=== PATIENT | male | born 1980 | race Caucasian/White ===

== ENCOUNTER 2017-12-05 20:55 | Emergency (ER) | payer BC ==
[~2017-12-05] VITALS: Ht 175.3 cm; Wt 90.7 kg
[~2017-12-05 20:55] MED LIST: AMOXICILLIN 50500 MG PO; IBUPROFEN 800800 MG PO; NORCO 5-325 TA1 EACH PO; UROXATRAL PO
[2017-12-05] MEDS ORDERED: IBUPROFEN 800800 MG PO (21:50)
[2017-12-05] MEDS ORDERED: NORCO 5-325 TA1 EACH PO ×2 (21:50→21:53)
[2017-12-05 22:02] VITALS: BP 122/64
== END 2017-12-05 22:03 | disposition home or self-care (01) ==
LOC: M.ERS 20:55
DX: M25.511 Pain in right shoulder (principal); F17.210 Nicotine dependence, cigarettes, uncomplicated; V87.7XXA Person injured in collision between other specified motor vehicles (traffic), initial encounter

== ENCOUNTER 2020-04-28 16:40 | Emergency (ER) | payer OTHER ==
[~2020-04-28] VITALS: Ht 172.7 cm; Wt 95.3 kg
[2020-04-28 17:52] LABS: ABSOLUTE BASOPHILS 0.1 thou/uL (0.0-0.2); ABSOLUTE EOSINOPHILS 0.2 thou/uL (0.0-0.7); ABSOLUTE LYMPHOCYTES 1.3 thou/uL (0.8-5.3); ABSOLUTE MONOCYTES 0.6 thou/uL (0.0-1.2); ABSOLUTE NEUTROPHILS 10.3 thou/uL (1.6-8.1); BASOPHILS 0.7 %; EOSINOPHILS 1.3 %; HEMATOCRIT 44.6 % (42.0-52.0); HEMOGLOBIN 15.4 gm/dL (14.0-18.0); LYMPHOCYTES 10.4 %; MCH 30.5 pg (26.0-34.0); MCHC 34.5 g/dL (28.0-37.0); MCV 88.4 fL (80.0-100.0); MONOCYTES 5.1 %; MPV 8.8 fl. (7.2-11.1); NUCLEATED RBCS 0 /100WBC; PLATELET COUNT* 204 thou/uL (150-400); POLYS 82.5 %; RBC 5.04 mil/uL (4.50-6.00); RDW-CV 13.2 % (10.5-14.5); WBC 12.5 thou/uL (4.0-11.0)
[2020-04-28 18:00] LABS: CALCIUM 8.6 mg/dL (8.5-10.1); CREATININE 1.3 mg/dL (0.6-1.3); POTASSIUM 3.7 mmol/L (3.5-5.1)
[2020-04-28 18:05] LABS: ALBUMIN 3.5 g/dL (3.4-5.0); TOTAL BILIRUBIN 0.5 mg/dL (<0.1-1.0); TOTAL PROTEIN 7.7 g/dL (6.4-8.2)
[2020-04-28] MEDS ORDERED: NORCO 5-325 TA1 EAC1 PO (19:07)
[2020-04-28] MEDS ORDERED: DOXYCYCLINE 10100 MG PO (19:07)
[2020-04-28] MEDS ORDERED: IBUPROFEN 800800 M1 PO (19:07)
[2020-04-28 19:30] VITALS: BP 143/90
== END 2020-04-28 19:30 | disposition home or self-care (01) ==
LOC: M.ERS 16:40
PROVIDERS: Nurse Practitioner Family
DX: N49.2 Inflammatory disorders of scrotum (principal)